=== PATIENT | female | born 1950 | race Caucasian/White ===

== ENCOUNTER 2024-03-27 14:37 | Emergency (ER) | payer BC, MEDICAID, OTHER ==
[~2024-03-27] VITALS: Ht 160 cm; Wt 80.7 kg
[~2024-03-27 14:37] MED LIST: FAMO40TA7 PO; FLA250 PO; LEVO500T20 PO; LOVA40TA75 PO
[2024-03-27 14:42] VITALS: BP_SYST 131; PULSE 68; RESP 22; TEMP 98.3; O2SAT 98
[2024-03-27 15:50] LABS: BASOPHILS % (AUTO) 0.4 % (0.0-2.0); EOSINOPHILS # (AUTO) 0.1 K/uL (0.0-0.4); EOSINOPHILS % (AUTO) 1.3 % (0.0-4.0); HEMATOCRIT 29.6 % (36-48); HEMOGLOBIN 10.1 g/dL (12.0-16.0); LYMPHOCYTES # (AUTO) 2.5 K/uL (1.0-5.5); LYMPHOCYTES % (AUTO) 27.5 % (20.5-51.5); MEAN CORPUSCULAR HEMOGLOBIN 31 pg (27-31); MEAN CORPUSCULAR HGB CONC 34 % (32-36); MEAN CORPUSCULAR VOLUME 90 fL (79.0-98.0); MONOCYTES # (AUTO) 0.7 K/uL (0.0-1.0); MONOCYTES % (AUTO) 7.8 % (1.7-9.3); NEUTROPHILS # (AUTO) 5.8 K/uL (1.8-7.7); PLATELET COUNT (AUTO) 240 K/uL (130-430); RED BLOOD CELL COUNT(AUTO) 3.27 MIL/uL (4.2-6.2); RED CELL DISTRIBUTION WIDTH 13.3 % (9.0-15.0); WHITE BLOOD COUNT (AUTO) 9.1 K/uL (4.8-10.8)
[2024-03-27 16:07] LABS: ALANINE AMINOTRANSFERASE 25 U/L (12-78); ALBUMIN 3.2 g/dL (3.4-4.8); ANION GAP 4 (5-15); ASPARTATE AMINOTRANSFERASE 30 U/L (10-37); CALCIUM 8.2 mg/dL (8.4-11.0); CARBON DIOXIDE 30 mmol/L (23-29); CHLORIDE 93 mmol/L (98-107); CREATININE 1.72 mg/dL (0.55-1.30); GLUCOSE 126 mg/dL (74-106); POTASSIUM 4.2 mmol/L (3.5-5.1); SODIUM SERUM 127 mmol/L (136-145); TOTAL BILIRUBIN 0.4 mg/dL (0.0-1.0); TOTAL PROTEIN, SERUM 6.5 g/dL (6.4-8.3); UREA NITROGEN, BLOOD 28 mg/dL (8-21)
[2024-03-27 16:08] LABS: BILIRUBIN,URINE NEGATIVE (NEGATIVE); BLOOD, URINE NEGATIVE (NEGATIVE); COLOR,URINE YELLOW (YELLOW); GLUCOSE,URINE NEGATIVE (NEGATIVE); KETONES,URINE NEGATIVE (NEGATIVE); LEUKOCYTE ESTERASE ,URINE 2+ (NEGATIVE); NITRITE, URINE NEGATIVE (NEGATIVE); PROTEIN URINE NEGATIVE (NEGATIVE); UROBILINOGEN,URINE 0.2 (0.2-1.0)
[2024-03-27 16:09] LABS: PROTHROMBIN TIME 10.1 SECS (9.5-12.5)
[2024-03-27 16:10] LABS: ACETAMINOPHEN 1 ug/mL (1-30); ALCOHOL, BLOOD < 3 mg/dL (<10); BILIRUBIN,DIRECT 0.1 mg/dL (0.0-0.3); SALICYLATE 1 mg/dL (3-30)
[2024-03-27 16:12] LABS: CLARITY/URINE HAZY (CLEAR)
[2024-03-27 16:39] LABS: BARBITURATE, URINE NEGATIVE (NEG <=200); BENZODIAZEPINE, URINE NEGATIVE (NEG <=150); CANNABINOID, URINE NEGATIVE (NEG <=50); COCAINE, URINE NEGATIVE (NEG <=150); METHAMPHETAMINES SCREEN,URINE NEGATIVE (NEG <=500); OPIATE, URINE POSITIVE (NEG <=100); PHENCYCLIDINE SCREEN,URINE NEGATIVE (NEG <=25); URINE AMPHETAMINE NEGATIVE (NEG <=500); URINE METHADONE NEGATIVE (NEG <=200); URINE OXYCODONE SCREEN NEGATIVE (NEG <=100)
[2024-03-27 16:40] LABS: UR TRICYCLIC ANTIDEPRESSANTS POSITIVE (NEG <=300)
[2024-03-27 16:48] LABS: BACTERIA,URINE MANY /HPF (None Seen); MUCUS,URINE None Seen /LPF (None Seen); RBC,URINE NONE SEEN /HPF (0-3); WBC,URINE 50-80 /HPF (0-3)
[2024-03-27 16:49] LABS: ACETONE, SERUM NEGATIVE (NEGATIVE)
[2024-03-27] MEDS ORDERED: ACET325T PO (17:35)
[2024-03-27] MEDS ORDERED: NITR-85 PO (17:35)
[2024-03-27] MEDS: NACL 0.9% 1,000 ML IV ONE (18:10)
[2024-03-27] MEDS: cefTRIAXone 1 GM in LIDOCAINE 1%, 20 ML MDV 2.1 ML IM ONE (18:10)
[2024-03-27 19:12] VITALS: BP_SYST 127; PULSE 69; RESP 20; TEMP 97; O2SAT 98
== END 2024-03-27 19:12 | disposition home or self-care (01) ==
LOC: SED 14:37
DX: N39.0 Urinary tract infection, site not specified (principal); N28.9 Disorder of kidney and ureter, unspecified; R41.82 Altered mental status, unspecified; R10.30 Lower abdominal pain, unspecified; Z79.899 Other long term (current) drug therapy; Z79.2 Long term (current) use of antibiotics
CPT/HCPCS: 99285; 96360; 70450; 71045; 80307; 80076; 80048; 81001; 82009; 82140; 85025; 85610; 85730; 87086; 84484; 36415; 83605; 96372; G0482; J0696; J7030; G0480; G0481; 81000; 81015; J2001